=== PATIENT | female | born 1985 | race Hispanic/Latino ===

== ENCOUNTER 2024-08-08 15:21 | Emergency (ER) | payer MEDICAID ==
[~2024-08-08] VITALS: Ht 160 cm; Wt 71.7 kg
[2024-08-08] VITALS (8 sets, daily range): BP systolic 111–136; BP diastolic 70–92
[~2024-08-08 15:21] MED LIST: EPIPEN 2-P0.3 MG/0.3 IM; PREDNISONE50 MG PO
[2024-08-08 16:43] LABS: BASO% 0.3 % (0-3); EOS% 3.1 % (0-8); HEMATOCRIT 41.8 % (37.0-47.0); HEMOGLOBIN 13.8 g/dl (12.0-16.0); IMMATURE GRANULOCYTES 0.3 % (0.0-5.0); LYMPH% 22.4 % (15-41); MEAN CELL VOLUME 97.2 fL CALC (80.0-100.0); MEAN CORPUSCULAR HGB 32.1 pG CALC (26.0-32.0); MONO% 9.7 % (2-13); NEUT# 5.93 thou/uL (2.00-7.15); NEUT% 64.2 % (42-76); RED BLOOD COUNT 4.3 mill/uL (4.20-5.60); RED CELL DISTRI WIDTH 12.3 % (11.5-15.5)
[2024-08-08 16:53] LABS: ALBUMIN 4.6 g/dL (3.2-5.0); BILIRUBIN, TOTAL 0.9 mg/dL (0.02-1.3); CREATININE 0.7 mg/dL (0.5-1.0); POTASSIUM 4.7 mmol/l (3.5-5.1); TOTAL PROTEIN 7.7 g/dL (6.3-8.2)
[2024-08-09] MEDS ORDERED: METHOCARBAMOL500 MG PO (14:26)
[2024-08-09] MEDS ORDERED: NAPROXEN500 MG PO (14:26)
== END 2024-08-08 17:27 | disposition home or self-care (01) ==
LOC: ED 15:21
PROVIDERS: Family Medicine
DX: H47.10 Unspecified papilledema (principal)

== ENCOUNTER 2024-08-09 11:03 | Emergency (ER) | payer MEDICAID ==
[~2024-08-09] VITALS: Ht 160 cm; Wt 72.0 kg
[2024-08-09 12:45] VITALS: BP 123/85
[2024-08-09 13:00] VITALS: BP 128/86
[2024-08-09] MEDS ORDERED: KETOROLAC TROMETHAMINE 30 MG/ML SDV IM ONE (13:05)
[2024-08-09] MEDS ORDERED: ORPHENADRINE CITRATE 30 MG/ML AMP IM ONE (13:05)
[2024-08-09 13:15] VITALS: BP 139/80
[2024-08-09] MEDS ORDERED: NAPROXEN500 MG PO (14:26)
[2024-08-09] MEDS ORDERED: METHOCARBAMOL500 MG PO (14:26)
[2024-08-09 14:45] VITALS: BP 139/80
== END 2024-08-09 14:54 | disposition home or self-care (01) ==
LOC: ED 11:03
DX: M54.2 Cervicalgia (principal); R51.9 Headache, unspecified
CPT/HCPCS: J2360